=== PATIENT | female | born 1995 | race Caucasian/White ===

== ENCOUNTER 2018-02-10 23:35 | Emergency (ER) | payer BC ==
[~2018-02-10] VITALS: Ht 167.6 cm; Wt 72.3 kg
[2018-02-11 00:03] VITALS: Ht 167.6 cm; Wt 72.3 kg
[2018-02-11 02:22] VITALS: BP 133/96
== END 2018-02-11 02:22 | disposition home or self-care (01) ==
LOC: ED 23:35
DX: J03.90 Acute tonsillitis, unspecified (principal)
CPT/HCPCS: J0561; J1885